=== PATIENT | male | born 1960 | race Caucasian/White ===

== ENCOUNTER 2024-09-22 10:46 | Emergency (ER) | payer OTHER, SELFPAY ==
[2024-09-22 10:49] VITALS: BP 150/85
--- NOTE | 2024-09-22 11:12 | ED.GENMED ---
History of Present Illness
General
Chief Complaint: Musculo-Skeletal Complaint
Source: patient
Exam Limitations: none
Time Seen by Provider: 09/22/24 10:57
Nursing documentation reviewed up to this point in time: agreed with
History of Present Illness
History of Present Illness:
63-year-old male presents to the ER for evaluation of pain to left groin. He started with pain 3 days ago. He denies any actual injury but felt pain after he was moving wood the following day. He reports however pain is very intermittent and very
sharp in the left inguinal area. He denies any nausea vomiting. He does report he was constipated for at least 24 hours when symptoms started. He denies any back pain, urinary frequency or urgency. He denies any nausea vomiting. No prior
history of stone. Pain does not hurt with movement. He denies any radiation to his testicle
Review of Systems
Review of Systems
Allergies reviewed?: Yes
All Other Systems: ROS reviewed and negative except as documented in HPI and ROS
Constitutional: Reports no symptoms; Denies fever
Respiratory: Reports no symptoms
Cardiac: Reports no symptoms
ABD/GI: Reports abdominal pain (left groin pain ) and other (Pt was constipated however resolved now ); Denies nausea or vomiting
: Reports no symptoms; Denies flank pain or urgency
Skin: Reports no symptoms
Neurological: Reports no symptoms
Psychiatric: Reports no symptoms
Phy Exam
General Physical Exam
General Presentation: no apparent distress
General age: appears stated age
General Skin: warm and dry
General Habitus: normal
General Mental: alert
Gastrointestinal Exam
Gastrointestinal Exam: soft and other (mild tenderness to llq )
Genitourinary Exam Male
Exam Male: circumcised and other (No palpable inguinal hernia no testicular swelling or tenderness)
Neurological Exam
Neurological Exam: alert and oriented x3
Musculoskeletal Exam
Musculoskeletal Exam: full ROM
Skin Exam
Skin Exam: normal color and warm/dry
Psychiatric Exam
Psychiatric Exam: normal mood/affect
Course
Orders/Labs/Results
Orders:
Orders
09/22/24 11:12
CT Abd/Pel (IV only)-DH only Urgent
Comment:
Reason For Exam: llq /left groin pain poss hernia/diverticulitis
0.9% Sodium Chloride 1000 ml [Nss] 1,000 ml IV BOLUS
09/22/24 11:20
Complete Blood Count/With Diff Urgent
Comprehensive Metabolic Panel Urgent
Lipase Urgent
09/22/24 12:18
Urinalysis Reflex To Culture Urgent
Date Specimen was Collected: 09/22/24
Time Specimen was Collected: 12:15
Abnormal Lab Results
09/22/24
11:20
Absolute Monos (auto) 0.7 H 10^3/uL
(0.1-0.6)
Monocytes % 11.9 H %
(1.7-9.3)
Glucose 107 H mg/dl
(70-99)
09/22/24 11:20
09/22/24 11:20
Vital Signs
Initial and Last Documented VS:
Initial Vital Signs
Temp Pulse Resp BP Pulse Ox
97.6 F 80 16 150/85 99
09/22/24 10:49 09/22/24 10:49 09/22/24 10:49 09/22/24 10:49 09/22/24 10:49
Last Documented Vital Signs
Temp Pulse Resp BP Pulse Ox
97.6 F 80 16 150/85 99
09/22/24 10:49 09/22/24 10:49 09/22/24 10:49 09/22/24 10:49 09/22/24 10:49
MDM/Problems Addressed
Differential Diagnosis Includes:
Not limited to inguinal hernia, diverticulitis, renal colic
MDM/Problems Addressed:
Patient is a 63-year-old male who presents with left groin pain. Patient no acute distress denies any fever chills abdomen soft mild lower quadrant tenderness. CAT scan does show mild diverticulitis. Patient is afebrile with a normal white count
stable for oral antibiotics discharged home. First dose of Augmentin given here in the ER. Will notify GI for desk to expedite appointment . also discussed with pt additional findings of 6 mm solid pulmonary nodule left lower lobe. Patient in the
process of obtaining new family doctor discussed the importance of outpatient follow-up for further evaluation for this. Discussed return if any worsening of symptoms. He has no acute distress and nontoxic stable for discharge
*Critical Care Note
Total Time (30-74mins, 75-104mins- exclusive of procedures): Not Applicable
ED Attending Note
-
Portions of this chart may have been created with voice recognition software.� Occasional wrong word or��sound alike� substitutions may have occurred due to the inherent limitations of voice recognition software.
Discharge Plan
Departure
Patient Disposition: Home (Routine Discharge)
Date of Disposition: 09/22/24
Time of Disposition: 13:11
Patient with high blood pressure during this ER visit?: Yes
Condition: Fair
Covid-19: Not Applicable
Discharge Problem:
Diverticulitis
Instructions: Diverticulitis, BLOOD PRESSURE
Prescriptions:
New
amoxicillin-pot clavulanate 875-125 mg tablet
1 tab PO BID Qty: 20 0RF
Referrals:
Orin Burns MD [Active] -
UNKNOWN - PT DOES,NOT KNOW [Family Provider] -
Activity Restrictions/Additional Instructions:
As discussed your CAT scan shows diverticulitis. Antibiotic as directed for the next 10 days. This medication was sent to your pharmacy.
[place] diet. Stay well-hydrated. Please call GI Tuesday if you do not hear from their office. You will need to follow-up in the next several days for reevaluation. Return if any worsening of symptoms of increased pain nausea vomiting fever chills.
Also as discussed please follow-up with your family doctor for further evaluation of your CAT scan report and findings including lung nodule. This will need close follow-up
Interventions
Interventions:
*Risk Screen - Suicide Last Done: 09/22/24 10:49
*General Assessment Last Done: 09/22/24 10:49
*Neglect/Abuse Screening Last Done: 09/22/24 10:49
*ED COVID-19 Vaccine History Last Done: 09/22/24 10:49
Discharge Date and Time
Print Language: CROATIAN
[2024-09-22] MEDS: NSS 1000 IV (11:26)
[2024-09-22 11:39] LABS: % Basophils 0.3 % (0-2); % Eosinophils 3.3 % (0-6); % Immature Granulocytes 0.3 % (0-0.5); % Lymphocytes 24.6 % (20.5-51.1); % Monocytes 11.9 % (1.7-9.3); % Neutrophils 59.6 % (42.2-75.2); Absolute Eosinophils 0.2 10^3/uL (0-0.7); Absolute Lymphocytes 1.4 10^3/uL (1.2-3.4); Absolute Monocytes 0.7 10^3/uL (0.1-0.6); Absolute Neutrophils 3.5 10^3/uL (1.4-6.5); Hematocrit 41.6 % (39.0-52.0); Hemoglobin 14.4 g/dL (13.0-18.0); Mean Corp Hgb Conc. 34.6 g/dL (33.0-37.0); Mean Corpuscular Hgb 30.6 pg (27.0-31.0); Mean Corpuscular Volume 88.5 fL (80.0-94.0); Mean Platelet Volume 10.3 fL (7.4-10.4); Nucleated Red Blood Cells % 0 % (-); Platelet Count 274 10^3/uL (130-400); Red Cell Dist. Width 12.9 % (11.5-14.5); White Blood Cell Count 5.8 10^3/uL (4.8-10.8)
[2024-09-22 11:58] LABS: ALT (SGPT) 20 U/L (0-50); AST (SGOT) 23 U/L (17-59); Albumin 4.6 g/dl (3.5-5.0); Alkaline Phosphatase 44 U/L (38-126); Blood Urea Nitrogen 13 mg/dl (9-20); Calcium 9.2 mg/dl (8.4-10.2); Carbon Dioxide 30 mmol/L (22-30); Chloride 100 mmol/L (98-107); Glucose 107 mg/dl (70-99); Lipase 87 U/L (23-300); Potassium 4.4 mmol/L (3.5-5.1); Sodium 138 mmol/L (135-145); Total Bilirubin 0.6 mg/dl (0.2-1.3); Total Protein 7.7 g/dl (6.3-8.2); eGFR > 60.00
[2024-09-22 12:32] LABS: Urine Albumin Negative (Neg - Trace); Urine Bilirubin Negative (Negative); Urine Character Clear (Clear); Urine Color Yellow; Urine Glucose Negative (Negative); Urine Ketone Negative (Negative); Urine Leukocyte Negative (Negative); Urine Nitrite Negative (Negative); Urine Occult Blood Negative (Negative); Urine Urobilinogen Negative (Neg - 1+)
[2024-09-22] MEDS: AUGMENTIN 875 MG/125 MG 1 TABLET PO (13:18)
[2024-09-22 13:26] VITALS: BP 147/78
== END 2024-09-22 13:32 | disposition home or self-care (01) ==
LOC: EMR 10:46
PROVIDERS: Nurse Practitioner; EMERGENCY PHYSICIAN Emergency Medicine
DX: K57.32 Diverticulitis of large intestine without perforation or abscess without bleeding (principal); K59.00 Constipation, unspecified; R03.0 Elevated blood-pressure reading, without diagnosis of hypertension; R91.1 Solitary pulmonary nodule
CPT/HCPCS: 99284; 96360; 74177; 80053; 81003; 83690; 85025; Q9967

== ENCOUNTER 2025-04-18 08:38 | Emergency (ER) | payer OTHER, SELFPAY ==
[2025-04-18 08:41] VITALS: BP 140/79
[2025-04-18 09:24] VITALS: BMI 29.9
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
[2025-04-18] MEDS: MOTRIN 800 MG PO (10:02)
[2025-04-18 10:34] VITALS: BP 140/72
== END 2025-04-18 12:06 | disposition home or self-care (01) ==
LOC: EMR 08:38
PROVIDERS: EMERGENCY PHYSICIAN Emergency Medicine
DX: S16.1XXA Strain of muscle, fascia and tendon at neck level, initial encounter (principal); V43.52XA Car driver injured in collision with other type car in traffic accident, initial encounter; Y92.410 Unspecified street and highway as the place of occurrence of the external cause
CPT/HCPCS: 99284; 72125